=== PATIENT | female | born 1955 ===

== ENCOUNTER 2020-09-17 06:05 | Day surgery (SDC) | payer OTHER ==
[~2020-09-17] VITALS: Ht 170.2 cm; Wt 78.6 kg
[~2020-09-17 06:05] MED LIST: LOSA25TA38 PO; METF-370 PO; METO-169 PO; OMEP-434 PO; ROSU1TAB14 PO
[2020-09-17] MEDS ORDERED: LIDOCAINE 2%HCL (LOCAL ANESTH.) INJ 20ML MDV ONE (07:25)
[2020-09-17] MEDS ORDERED: IODIXANOL 320MG/ML 100ML BTL IV ONE (07:26)
[2020-09-17] MEDS ORDERED: ANGIOMAX 250 MG VIAL IV ONE (08:04)
[2020-09-17] MEDS ORDERED: HEPARIN SODIUM (PORCINE) 5000 UNITS/ML 1ML VIAL ONE (08:05)
[2020-09-17] MEDS ORDERED: SODIUM CHL 0.9% 0 ML ONE (08:05)
[2020-09-17] MEDS ORDERED: VERAPAMIL 2.5MG/ML INJ 2ML VIAL IV ONE (08:05)
[2020-09-17] MEDS ORDERED: fentaNYL CITRATE 100 MCG/2 ML VL ONE (08:05)
[2020-09-17] MEDS ORDERED: MIDAZOLAM HCL 1MG/1ML-2 ML VIAL ONE (08:05)
[2020-09-17] MEDS ORDERED: hydrALAZINE HCL 20 MG/ML VL IV ONE (09:00)
[2020-09-17] MEDS ORDERED: LABETALOL HCL 5 MG/ML 4ML SYRINGE IV ONE (10:15)
[2020-09-17] MEDS ORDERED: LABETALOL HCL 5 MG/ML ML 20ML VIAL IV ONE (10:15)
== END 2020-09-17 11:30 | disposition home or self-care (01) ==
LOC: CATH 06:05
PROVIDERS: ATTEND Internal Medicine
DX: I25.118 Atherosclerotic heart disease of native coronary artery with other forms of angina pectoris (principal); I10 Essential (primary) hypertension; E78.5 Hyperlipidemia, unspecified; I25.2 Old myocardial infarction; F17.210 Nicotine dependence, cigarettes, uncomplicated; E11.9 Type 2 diabetes mellitus without complications; Z98.890 Other specified postprocedural states; Z79.899 Other long term (current) drug therapy; Z20.822 Contact with and (suspected) exposure to COVID-19; Z79.84 Long term (current) use of oral hypoglycemic drugs
CPT/HCPCS: 93458; C1769; C1887; C1894; J0360; J1644; J2250; J3010; Q9967; U0003; 99152